=== PATIENT | female | born 1960 | race Two or more races ===

== ENCOUNTER 2023-09-09 19:34 | Emergency (ER) | payer OTHER ==
[~2023-09-09] VITALS: Ht 160 cm; Wt 75.7 kg
[2023-09-09] MEDS ORDERED: INDERAL XL80 MG PO (20:30)
[2023-09-09] MEDS ORDERED: 0.9 % SODIUM CHLORIDE 500 ML IV ONE (21:30)
[2023-09-09] MEDS ORDERED: ONDANSETRON HCL 2 MG/ML VIAL IV ONE (21:30)
[2023-09-09] MEDS ORDERED: FAMOTIDINE/PF 20 MG/2 ML VIAL IV ONE (21:30)
[2023-09-09] MEDS ORDERED: MEPERIDINE HCL 25 MG/ML AMPUL IM ONE (21:45)
[2023-09-09] MEDS ORDERED: PROMETHAZINE HCL 25 MG/ML AMPUL IM ONE (21:45)
[2023-09-09 22:25] LABS: HEMATOCRIT 37.8 % (36.0-45.00); HEMOGLOBIN 12.7 g/dL (12.0-15.00); MEAN CELL VOLUME 88.9 fL (80.00-100.00); MEAN CORPUSCULAR HGB CONC 33.7 g/dl (32.0-36.0); PLATELET COUNT 241 K/uL (150-450); RED BLOOD COUNT 4.25 M/uL (4.00-6.00); RED CELL DISTRIBUTION WIDTH 13.8 % (11.5-14.5)
[2023-09-09 22:35] LABS: ALBUMIN 3.4 gm/dL (3.4-5.0); BILIRUBIN TOTAL 0.35 mg/dL (0.3-1.2); CALCIUM 9.1 mg/dL (8.5-10.1); CREATININE SERUM 0.61 mg/dL (0.55-1.02); GFR 99.38; GLOBULINA 3.4 G/DL (2.4-3.5); POTASSIUM 4.06 mEq/L (3.5-5.1); TOTAL PROTEIN 6.8 gm/dL (6.4-8.2)
[2023-09-09 23:25] LABS: URINE APPEARANCE Clear; URINE BILIRRUBIN Negative (NEGATIVE); URINE BLOOD Negative; URINE COLOR Yellow; URINE GLUCOSE Negative (NEGATIVE); URINE LEUKOCYTE Trace; URINE NITRATE Negative; URINE PROTEIN Negative (NEGATIVE); URINE UROBILINOGEN 0.2 E.U./dl
[2023-09-09 23:29] LABS: URINE EPITHELIAL CELLS 28.2 uL (0.0-38.8); URINE RBC 9.6 uL (0.0-20.8); URINE WBC 24.4 uL (0.0-23.2)
[2023-09-09] MEDS ORDERED: CEFTRIAXONE SODIUM 1,000 MG VIAL IV ONE (23:45)
== END 2023-09-10 02:43 | disposition home or self-care (01) ==
LOC: ER 19:34
PROVIDERS: Nurse Practitioner Family
DX: N39.0 Urinary tract infection, site not specified (principal); R10.84 Generalized abdominal pain

== ENCOUNTER → 2023-09-13 | Emergency (ER) | payer OTHER ==
[~2023-09-13] VITALS: Ht 160 cm; Wt 75.7 kg
[~2023-09-13] MED LIST: INDERAL XL80 MG PO; LEVOFLOXACIN500 MG PO
== END | disposition left against medical advice (07) ==
LOC: ER 05:46
DX: Z53.21 Procedure and treatment not carried out due to patient leaving prior to being seen by health care provider (principal)